=== PATIENT | male | born 1970 | race Caucasian/White ===

== ENCOUNTER → 2017-12-05 | Outpatient (CLI) | payer OTHER ==
[~2017-12-05] MED LIST: ANDRODERM1 EAC2
--- NOTE | 2018-01-03 10:53 | SLEEP ---
[address] [address] SLEEP STUDY REPORT Name: KRYSKENNA James [id number] Admission: 12/05/17 Attend Phys: Anthony Goldberg MD Discharge: Date of : 68 Report #: [id number] THIS REPORT FOR: //name// CC: Anthony Goldberg This study has been reviewed in its entirety by a board certified sleep specialist DATE OF SERVICE: 12/06/2017 INDICATION FOR SLEEP STUDY: Excessive daytime sleepiness. INTERPRETATION: Total duration of the study is 461 minutes. During this time duration, we recorded 9 central apneas, 36 obstructive apneas and 92 hypopneas with an overall apnea-hypopnea index of 17.8. Body position data indicates the patient was lying supine throughout the sleep study. There are also several desaturations recorded. Overall, the patient spent 4.3 minutes below an O2 saturation of 88%. Mean heart rate was 66. IMPRESSION: Obstructive sleep apnea, please review above for details. RECOMMENDATIONS: Consider either a CPAP auto titrated device or an in-lab sleep study for CPAP titration. Clinical correlation is advised. Again, the sleep study was performed on 12/06/2017. <ELECTRONICALLY SIGNED> By: Jeffrey Garsia MD 01/03/18 1053 [id number] Garsia MD /nt
== END ==
LOC: M.SLEEPLAB 09:00
DX: G47.33 Obstructive sleep apnea (adult) (pediatric) (principal)